=== PATIENT | female | born 1990 ===

== ENCOUNTER 2021-03-12 13:00 | Inpatient (IN) | payer OTHER ==
[~2021-03-12] VITALS: Ht 162.6 cm; Wt 2.7 kg
[2021-03-26] MEDS ORDERED: PRENATAL CAPLE1 EAC1 PO (16:03)
[2021-03-26] MEDS ORDERED: FOLIC ACID20 MG PO (16:04)
== END 2021-03-29 12:40 | disposition home or self-care (01) | DRG 788 ==
LOC: SURH 03-23 13:00 → OB/GYN 03-26 11:30 → LDR 03-26 11:30 → OB/GYN 03-26 17:41
PROVIDERS: ADMIT Obstetrics & Gynecology; ATTEND Obstetrics & Gynecology
PROC: 4A1HXFZ Monitoring of Products of Conception, Cardiac Rhythm, External Approach (ICD-10-PCS; 2021-03-26)
PROC: 10D00Z1 Extraction of Products of Conception, Low, Open Approach (ICD-10-PCS; principal; 2021-03-26 17:00)
DX: O76 Abnormality in fetal heart rate and rhythm complicating labor and delivery (principal); O48.0 Post-term pregnancy; Z37.0 Single live birth; Z3A.40 40 weeks gestation of pregnancy; Z20.822 Contact with and (suspected) exposure to COVID-19

== ENCOUNTER 2021-03-26 10:55 | Outpatient (CLI) | payer OTHER ==
[2021-03-26] MEDS ORDERED: PRENATAL CAPLE1 EAC1 PO (16:03)
[2021-03-26] MEDS ORDERED: FOLIC ACID20 MG PO (16:04)
== END 2021-03-26 12:59 | disposition still patient (30) ==
LOC: NST 10:55
PROVIDERS: ATTEND Obstetrics & Gynecology
DX: Z34.83 Encounter for supervision of other normal pregnancy, third trimester (principal)

== ENCOUNTER 2022-01-29 08:56 | Day surgery (SDC) | payer OTHER ==
[~2022-01-29] VITALS: Ht 162.6 cm; Wt 53.1 kg
[~2022-01-29 08:56] MED LIST: FOLIC ACID20 MG PO; PRENATAL CAPLE1 EAC1 PO
== END 2022-01-29 15:45 | disposition home or self-care (01) ==
LOC: CIR.AMB 08:56
PROVIDERS: ATTEND Obstetrics & Gynecology
DX: O02.1 Missed abortion (principal)